=== PATIENT | female | born 1995 | race Two or more races ===

== ENCOUNTER 2017-07-27 08:04 | Outpatient (CLI) | payer OTHER | END 2017-07-27 17:00 | disposition home or self-care (01) | LOC: TOM 08:04 | DX: I35.9 Nonrheumatic aortic valve disorder, unspecified (principal); R00.2 Palpitations | CPT/HCPCS: 71275 ==

== ENCOUNTER 2021-05-09 07:50 | Outpatient (CLI) | payer OTHER | END 2021-05-09 07:59 | disposition home or self-care (01) | LOC: TOM 07:50 | DX: I71.8 Aortic aneurysm of unspecified site, ruptured (principal) ==